=== PATIENT | male | born 1980 | race Caucasian/White ===

== ENCOUNTER 2018-02-11 14:59 | Emergency (ER) | payer OTHER ==
--- NOTE | 2018-02-11 15:33 | ED ---
GI/ HPI - HPI Summary HPI Summary: This pt is a 37 y/o male presenting to [facility] c/o penile swelling and pain for 2.5 days. Pt reports his swelling and pain have gradually worsened over the past days. Pt notes trouble urinating secondary to penile swelling. His pain is aggravated with voiding secondary to swelling. Denies penile discharge, dysuria , hematuria, nausea, vomiting. Pt states he has had a normal appetite and normal bowel movements. He has never had these symptoms in the past. PMHx: appendectomy. - History of Current Complaint Chief Complaint: EDUrogenitalProblems Time Seen by Provider: 02/11/18 15:25 Stated Complaint: 2DAYS PENIS SWOLLEN AND SORE Hx Obtained From: Patient Onset/Duration: Started Days Ago - 2.5, Still Present Timing: Lasting Days - 2.5 Current Severity: Severe Pain Intensity: 8 Additional Locations for Males: Penis Pain Characteristics: Pressure Associated Signs and Symptoms: Positive: Other: - penile swelling. Negative: Nausea, Vomiting, Constipation, Discharge, Diarrhea, Hematuria, Dysuria, Abdominal Pain, New Sexual Partner Aggravating Factor(s): Voiding Alleviating Factor(s): Nothing - Allergy/Home Medications Allergies/Adverse Reactions: Allergies Allergy/AdvReac Type Severity Reaction Status Date / Time No Known Allergies Allergy Verified 02/11/18 15:03 PMH/Surg Hx/FS Hx/Imm Hx Endocrine/Hematology History: Denies: Hx Diabetes Cardiovascular History: Denies: Hx Hypertension - Surgical History Surgery Procedure, Year, and Place: Appendectomy Infectious Disease History: No Infectious Disease History: Denies: Traveled Outside the [place] in Last 30 Days - Family History Known Family History: Negative: Cardiac Disease - Social History Alcohol Use: None Substance Use Type: Reports: None Smoking Status (MU): Never Smoked Tobacco Review of Systems Constitutional: Other - normal appetite Positive: Fever - today ENT: Negative Cardiovascular: Negative Respiratory: Negative Negative: Vomiting, Diarrhea, Nausea, Other - constipation Genitourinary: Other - penile swelling Positive: pain - penile pain. Negative: dysuria, discharge All Other Systems Reviewed And Are Negative: Yes Physical Exam - Summary Physical Exam Summary: Appearance: The patient is well-nourished in no acute distress. Skin: The skin is warm and dry and skin color reflects adequate perfusion. HEENT: The head is normocephalic and atraumatic. The pupils are equal and reactive. The conjunctivae are clear and without drainage. Nares are patent and without drainage. Mouth reveals moist mucous membranes and the throat is without erythema and exudate. The external ears are intact. Neck: the neck is supple with full range of motion and non-tender. There are no carotid bruits. There is no neck vein distension. Respiratory: Chest is non-tender. Lungs are clear to auscultation and breath sounds are symmetrical and equal. Cardiovascular: Heart is regular rate and rhythm. There is no murmur or rub auscultated. There is no peripheral edema and pulses are symmetrical and equal. Abdomen: The abdomen is soft and non-tender. There are normal bowel sounds heard in all four quadrants and there is no organomegaly palpated. : Phimosis. Musculoskeletal: There is no back tenderness noted. Extremities are non-tender with full range of motion. There is good capillary refill. There is no peripheral edema or calf tenderness elicited. Neurological: Patient is alert and oriented to person, place and time. Psychiatric: The patient has an appropriate affect and does not exhibit any anxiety or depression. Triage Information Reviewed: Yes Vital Signs On Initial Exam: Initial Vitals Temp Pulse Resp BP Pulse Ox 100.1 F 103 16 129/87 99 02/11/18 15:00 02/11/18 15:00 02/11/18 15:00 02/11/18 15:00 02/11/18 15:00 Vital Signs Reviewed: Yes Diagnostics - Vital Signs Vital Signs Temp Pulse Resp BP Pulse Ox 02/11/18 15:00 100.1 F 103 16 129/87 99 - Laboratory Lab Statement: Any lab studies that have been ordered have been reviewed, and results considered in the medical decision making process. Re-Evaluation - Re-Evaluation First Eval Re-Evaluation Time: 17:49 Comment: Reviewed lab results with the pt. GIGU Course/Dx - Course Course Of Treatment: Mr. Clarke presented to the emergency department with a concern for penile swelling and pain over the past 2 or 2-1/2 days. He was noted to have swollen foreskin over what seems likely to be a swollen glans. Because of the phimosis it is difficult to actually visualize the glans. Fingerstick glucose was okay at 103 and a urinalysis was negative. I discussed it with Dr. Yarbrough who was willing to follow him up and recommended Mycolog cream in the interim. I also gave him some pain medication as he was unable to sleep well last night. - Diagnoses Provider Diagnoses: Phimosis, Balanitis - Physician Notifications Discussed Care Of Patient With: Kong Cali Time Discussed With Above Provider: 16:32 Instructed by Provider To: Other - I discussed pt care with Dr. Cali, urologist. Discharge - Sign-Out/Discharge Documenting (check all that apply): Patient Departure - Discharge - Discharge Plan Condition: Stable Disposition: HOME Prescriptions: Nystatin/Triamcinolone CR(NF) [Mycolog CREAM(NF)] 1 applic TOPICAL BID #60 gm traMADol TAB* [Ultram*] 50 mg PO Q6HR PRN #20 tab MDD 4 PRN Reason: Pain Patient Education Materials: Phimosis (ED), Balanitis (ED) Referrals: [facility] [Outside] Kong Cali MD [Medical Doctor] - Additional Instructions: Please follow up with Dr. Cali, urologist. RETURN TO THE ED FOR ANY WORSENING SYMPTOMS. - Billing Disposition and Condition Condition: STABLE Disposition: Home
[2018-02-11] MEDS ORDERED: HYDROcodone/ACETAMIN 5-325 MG* 1 TAB PO ONE (16:48)
[2018-02-11 17:09] LABS: Urine Appearance Clear; Urine Blood Negative (Negative); Urine Color Yellow; Urine Ketones Negative (Negative); Urine Protein Negative (Negative); Urine Specific Gravity 1.018 (1.010-1.030); Urine Urobilinogen Negative (Negative)
[2018-02-11 18:36] VITALS: BP 121/77
== END 2018-02-11 18:34 | disposition home or self-care (01) ==
LOC: ED 14:59
DX: N47.1 Phimosis (principal); N48.1 Balanitis
CPT/HCPCS: 81003; 99282

== ENCOUNTER 2018-02-11 21:12 | Emergency (ER) | payer OTHER ==
[2018-02-11 21:20] VITALS: BP 140/81
== END 2018-02-11 21:33 | disposition left against medical advice (07) ==
LOC: ED 21:12
DX: R39.9 Unspecified symptoms and signs involving the genitourinary system (principal); Z53.21 Procedure and treatment not carried out due to patient leaving prior to being seen by health care provider

== ENCOUNTER 2018-02-12 15:57 | Emergency (ER) | payer OTHER ==
[2018-02-12] MEDS ORDERED: Morphine VIAL* 4 MG/ML VIAL (1 ml vial) IV ONE (17:16)
[2018-02-12] MEDS ORDERED: Ketorolac INJ* 30 MG/ML 1 ML VIAL IV PUSH ONE (17:16)
[2018-02-12] MEDS ORDERED: Piperacillin/Tazobac ADVAN(*) 3.375 GM in NS 0.9% 100 ML* 100 ML IVPB ONE (17:17)
--- NOTE | 2018-02-12 17:18 | ED ---
Progress - Progress Note Progress Note: I supervised the care of the physician lpn medical assistant and performed the history and physical exam on the pt. Hx: Pt with penis swelling in the perineal area x2 days. He was started on antifungal ointment yesterday. Pt is uncircumcised. Today he presents with increased pain, swelling, and skin breakdown on base of his penis. Physical Exam: Appearance: Very uncomfortable Skin: warm, dry, reflects adequate perfusion Head/face: normal Eyes: EOMI, RAGHAVENDRA ENT: normal Neck: supple, non-tender Respiratory: CTA, breath sounds present Cardiovascular: RRR, pulses symmetrical Abdomen: non-tender, soft : he has a large open area of 2 cm across base of penis with significant amount of induration and draining pus. Bowel: present Musculoskeletal: normal, strength/ROM intact Neuro: normal, sensory motor intact, A&Ox3 Plan: obtain CT, place on antibiotics. - Results/Orders Results/Orders: Pelvis CT, as read by radiologist IMPRESSION: Diffuse soft tissue edema at the penis corresponding with clinical history. No loculated peripherally enhancing fluid collection evident to definitely identify a focal abscess collection. Negative for subcutaneous emphysema or conspicuous foreign body. Dr. Molina has reviewed this radiology report. Course/Dx - Course Course Of Treatment: Patient with open draining area consistent with abscess in the right base of the penis. It appears to only extend locally. A culture was obtained by me and a CT scan was ordered. This shows no proximal extension throughout the fascia. The patient is spontaneously draining purulence. Zosyn , vancomycin was given IV. I discussed the case with surgery here (as we had no urology coverage) who is not comfortable taking this case. Transfer to [facility] where urology coverages available. Spoke with Dr. Shafer from urology there and the patient was accepted by Dr. Benavides from the hospitalist service. The patient was pain controlled, urinating on his own. A Fernández catheter was attempted replaced here but we were unable to localize the meatus given his significant swelling. - Diagnoses Provider Diagnoses: Penile abscess, Penile swelling - Provider Notifications Discussed Care Of Patient With: Axel Acevedo Time Discussed With Above Provider: 19:23 Instructed by Provider To: Other - I discussed pt care with Dr. Acevedo, surgeon, who will take a look at the CT. [19:37] Dr. Acevedo reports pt needs to be transferred. [20:07] I discussed with the [facility] transfer center and with Dr. Jarquin, urologist, who accepted the case. [20:19] I spoke with Dr. Benavides, from [facility], who accepted the pt for transfer. 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 - Critical Care Time Critical Care Time: 30-74 min - 30 minutes - CCT is EXCLUSIVE of separately billable procedures Discharge - Sign-Out/Discharge Documenting (check all that apply): Patient Departure - Transfer to [facility], Receiving Sign-Out Receiving patient FROM: [facility] - Discharge Plan Condition: Fair Disposition: TRANS HIGHER LVL OF CARE FAC Referrals: No Primary Care Phys,NOPCP [Primary Care Provider] - - Billing Disposition and Condition Condition: FAIR Disposition: Trans Higher Lvl of Care Fac
[2018-02-12 17:33] LABS: Hematocrit 37 % (42-52); Hemoglobin 12.2 g/dl (14.0-18.0); Mean Corpuscular HGB Conc 33 g/dl (31-36); Mean Corpuscular Hemoglobin 27 pg (27-31); Mean Corpuscular Volume 83 fL (80-94); Mean Platelet Volume 7.3 um3 (7.4-10.4); Platelet Count 348 10^3/ul (150-450); Red Blood Count 4.49 10^6/ul (4.00-5.40); Red Cell Distribution Width 13 % (10.5-15); White Blood Count 12.8 10^3/ul (3.5-10.8)
[2018-02-12] MEDS ORDERED: Vancomycin(*) 1,000 MG - ED ONCE IVPB ONE ×2 (18:00)
[2018-02-12] MEDS ORDERED: Vancomycin(*) 1,000 MG VIAL IVPB SCH (18:00)
[2018-02-12 18:04] LABS: Urine Appearance Cloudy; Urine Blood 3+ (Negative); Urine Color Yellow; Urine Ketones Negative (Negative); Urine Protein 1+(30 mg/dL) (Negative); Urine Red Blood Cell 3+(>10/hpf) (Absent); Urine Urobilinogen Negative (Negative); Urine White Blood Cell 3+(>20/hpf) (Absent)
[2018-02-12] MEDS ORDERED: Iohexol 300* (CONTRAST) 10 ML SDV IV ONE (18:04)
--- NOTE | 2018-02-12 18:04 | ED ---
GI/ HPI - HPI Summary HPI Summary: Patient returns today with ongoing pain and penis tissue swelling. Yesterday he presented with mild swelling of the tip and difficulty urinating due to swelling. He was given Mycolog cream. He reports he woke this morning and penis seemed to be a little more swollen. He went to wash it again this afternoon to reapply cream when he noticed an area of drainage near the base of the shaft. Pain is 9/10 despite taking ibuprofen and tramadol which was rx'd yesterday as well. Going back to the origination of this issue, patient reports he developed a dime-sized bump over the foreskin of his penis 2 days ago. He thought he simply bumped it as it was sore but denies a pustule, vesicle, ulceration, etc. He reports the swelling progressed from there - see note from yesterday for details. Other than pressure with urination, he denies dysuria, penile drainage, testicular pain. He has developed swelling about the penile shaft that is progressing down to the very tops of the scrotum today. No inguinal pain/LN swelling. He reports a fever yesterday however today denies fever, chills, N/V/D, and he's moving his bowels well w/o issues. Eating and drinking well. Denies perineal fullness, swelling or pain. No h/o STD's. - History of Current Complaint Chief Complaint: EDUrogenitalProblems Time Seen by Provider: 02/12/18 16:18 Stated Complaint: PENIS IS BLEEDING Hx Obtained From: Patient Pain Intensity: 10 - Allergy/Home Medications Allergies/Adverse Reactions: Allergies Allergy/AdvReac Type Severity Reaction Status Date / Time No Known Allergies Allergy Verified 02/11/18 21:21 PMH/Surg Hx/FS Hx/Imm Hx Previously Healthy: Yes Endocrine/Hematology History: Denies: Hx Diabetes, Autoimmune Disease Cardiovascular History: Denies: Hx Hypertension - Surgical History Surgery Procedure, Year, and Place: Appendectomy Infectious Disease History: No Infectious Disease History: Denies: Hx of Known/Suspected MRSA, Hx Shingles, History Other Infectious Disease - HSV, syphillis, Traveled Outside the [place] in Last 30 Days - Family History Known Family History: Negative: Cardiac Disease - Social History Alcohol Use: None Hx Substance Use: No Substance Use Type: Reports: None Hx Tobacco Use: No Smoking Status (MU): Never Smoked Tobacco Review of Systems Constitutional: Negative Cardiovascular: Negative Respiratory: Negative Gastrointestinal: Negative Positive: see HPI Musculoskeletal: Negative Skin: Negative Neurological: Negative Positive: Anxious All Other Systems Reviewed And Are Negative: Yes Physical Exam Triage Information Reviewed: Yes Vital Signs On Initial Exam: Initial Vitals Temp Pulse Resp BP Pulse Ox 97.7 F 90 17 122/67 100 02/12/18 16:07 02/12/18 16:07 02/12/18 16:07 02/12/18 16:07 02/12/18 16:07 Vital Signs Reviewed: Yes Appearance: Positive: Well-Appearing, Well-Nourished, Pain Distress Skin: Positive: Warm, Skin Color Reflects Adequate Perfusion Head/Face: Positive: Normal Head/Face Inspection Eyes: Positive: EOMI ENT: Positive: Hearing grossly normal Respiratory/Lung Sounds: Positive: Breath Sounds Present Cardiovascular: Positive: Normal Abdomen Description: Positive: Nontender, No Organomegaly, Soft. Negative: CVA Tenderness (R), CVA Tenderness (L) Bowel Sounds: Positive: Present Male Genital Exam: Positive: Scrotum Tenderness (R), Scrotum Tenderness (L), Other - tissue circumventing the shaft of penis is edematous to the point that glans has been eveloped within - open sore about 4mm in diameter (although no clean borders) at the base of the Rt shaft along the ventral surface with serosanginous d/c - when pressure is applied a bloody purulent d/c is expressed and wound is found to be mm deep. Very painful. Edema/induration extends into superior scrotal region - remaining areas of the scrotum and testicles are w/o lesions Musculoskeletal: Positive: Normal, Strength/ROM Intact Neurological: Positive: Normal, Sensory/Motor Intact, Alert, Oriented to Person Place, Time, CN Intact II-III Diagnostics - Vital Signs Vital Signs Temp Pulse Resp BP Pulse Ox 02/12/18 17:35 16 02/12/18 16:07 97.7 F 90 17 122/67 100 - Laboratory Lab Results: Lab Results 02/12/18 02/12/18 02/12/18 Range/Units 17:24 17:24 17:24 WBC 12.8 H (3.5-10.8) 10^3/ul RBC 4.49 (4.00-5.40) 10^6/ul Hgb 12.2 L (14.0-18.0) g/dl Hct 37 L (42-52) % MCV 83 (80-94) fL MCH 27 (27-31) pg MCHC 33 (31-36) g/dl RDW 13 (10.5-15) % Plt Count 348 (150-450) 10^3/ul MPV 7.3 L (7.4-10.4) um3 Neut % (Auto) Pending Lymph % (Auto) Pending [place]ell % (Auto) Pending Eos % (Auto) Pending Baso % (Auto) Pending Absolute Neuts (auto) Pending Absolute Lymphs (auto) Pending Absolute Monos (auto) Pending Absolute Eos (auto) Pending Absolute Basos (auto) Pending Absolute Nucleated RBC Pending Nucleated RBC % Pending Sodium 137 (135-145) mmol/L Potassium 4.4 (3.5-5.0) mmol/L Chloride 100 L (101-111) mmol/L Carbon Dioxide 31 (22-32) mmol/L Anion Gap 6 (2-11) mmol/L BUN 11 (6-24) mg/dL Creatinine 0.67 (0.67-1.17) mg/dL Est GFR ( Amer) 163.3 (>60) Est GFR (Non-Af Amer) 135.0 (>60) BUN/Creatinine Ratio 16.4 (8-20) Glucose 95 (70-100) mg/dL Lactic Acid 1.1 (0.5-2.0) mmol/L Calcium 8.9 (8.6-10.3) mg/dL Result Diagrams: 02/12/18 17:24 02/12/18 17:24 Lab Statement: Any lab studies that have been ordered have been reviewed, and results considered in the medical decision making process. GIGU Course/Dx - Course Course Of Treatment: Dr. Molina in to see pt as well - agrees pt needs labs, CT and cx of bhavani collected. Pain medications and anbx ordered. He will most likely require transfer pending CT d/t circumferential swelling and diffculty urinating w/ additional concern for infection spreading into fascia. Pt aware of plan. Signed out to Dr. Mariscal with pt is stable condition. - Diagnoses Provider Diagnoses: Infection of penis Discharge - Sign-Out/Discharge Documenting (check all that apply): Sign-Out Patient Signing out patient TO: Larry Molina - Discharge Plan Condition: Stable - Billing Disposition and Condition Condition: STABLE
[2018-02-12 18:14] LABS: ABS Basophils 0.1 10^3/ul (0-0.2); ABS Eosinophils 0.6 10^3/ul (0-0.6); ABS Lymphocytes 1.6 10^3/ul (1.0-4.8); ABS Monocytes 1.6 10^3/ul (0-0.8); ABS Neutrophils 8.9 10^3/ul (1.5-7.7); ABS Nucleated RBC 0 10^3/ul; Eosinophil % 4.7 % (0-6); Lymphocyte % 12.5 % (25-47); Nucleated Red Blood Cells % 0.1
[2018-02-12] MEDS ORDERED: HYDROmorphone INJ* 2 MG/ML CARPUJECT SYRINGE IV SLOW PU ONE (18:58)
[2018-02-12] MEDS ORDERED: Lidocaine 2% JELLY* 6 ML JELLY TOPICAL ONE (18:59)
--- NOTE | 2018-02-12 19:08 | RAD ---
Indication: Penile abscess. Comparison: No relevant prior exams available on the [facility] PACS for comparison. Technique: Contrast enhanced CT of pelvis with 97 mL Omnipaque 300 IV contrast. No oral contrast administered. Multiplanar reformation. Report: The appendix is not visualized consistent with surgical history of appendectomy. Unremarkable visualized small and large bowel loops. Negative for ascites or free air within the [id number]. Negative for significant hernias. Unremarkable visualized distal ureters and distended urinary bladder. Unremarkable CT appearance of the prostate and symmetric seminal vesicles. Diffuse soft tissue edema at the penis corresponding with clinical history. No loculated peripherally enhancing fluid collection evident to definitively identify a focal abscess collection. Negative for subcutaneous emphysema or conspicuous foreign body. Small bilateral hydroceles. Negative for lymphadenopathy within the [id number]. Negative for osseous lesions. IMPRESSION: #. Diffuse soft tissue edema at the penis corresponding with clinical history. No loculated peripherally enhancing fluid collection evident to definitively identify a focal abscess collection. Negative for subcutaneous emphysema or conspicuous foreign body.
[2018-02-12] MEDS ORDERED: Vancomycin per Pharmacy* NOTE FOLLOW UP PRN (21:46)
[2018-02-12 21:56] VITALS: BP 126/71
== END 2018-02-12 21:56 | disposition short-term general hospital (02) ==
LOC: ED 15:57
DX: N48.21 Abscess of corpus cavernosum and penis (principal); R39.198 Other difficulties with micturition
CPT/HCPCS: 36415; 72193; 80048; 81003; 81015; 83605; 85025; 87040; 87070; 87077; 87086; 87186; 87205; 87640; 87641; 96365; 96375; 99283; J1170; J1885; J2270; J2543; J3370; Q9967

== ENCOUNTER 2018-02-18 10:47 | Emergency (ER) | payer OTHER ==
--- NOTE | 2018-02-18 13:41 | UC ---
Complaint Male HPI - HPI Summary HPI Summary: Mr. Clarke is a pleasant 37 yo gentleman s/p urologic abscess surgery day before yesterday, Son MILLAN, d/t proximal penile abscess. Packed with betadine soaked surgical packing rope. He was told to f/u with Urologist here in [place], but he reports that they don't take his insurance, as such he plans to f/u with Urology at [facility] in [place]. He reports that he was supposed to have home health nursing care set up for dressing changes every other day, but this did not happen. As such, he presents today for dressing change. He is concerned that the packing material has disappeared, but does not recall it having fallen out. No fever / chills. + scrotal swelling, not worse. No new redness, no new discomfort. No rash. No sob / cp. No c/o urinary issues. Taking augmentin. - History of Current Complaint Chief Complaint: UCGU Stated Complaint: DRESSING CHANGE Time Seen by Provider: 02/18/18 12:59 Hx Obtained From: Patient Pain Intensity: 4 - Allergies/Home Medications Allergies/Adverse Reactions: Allergies Allergy/AdvReac Type Severity Reaction Status Date / Time No Known Allergies Allergy Verified 02/11/18 21:21 Home Medications: Home Medications Amoxicillin/Clavulanate TAB* [Augmentin TAB 500 mg*] 02/18/18 [History] Oxycodone TAB(NF) [Oxycodone HCl 10 MG] 02/18/18 [History] PMH/Surg Hx/FS Hx/Imm Hx Previously Healthy: Yes - see hpi GI/ History: Other - see hpi Other GI/ History: see above - Surgical History Surgical History: Yes Surgery Procedure, Year, and Place: Appendectomy. I and D of penile abcess - Family History Known Family History: Negative: Cardiac Disease - Social History Alcohol Use: Weekly Substance Use Type: None Smoking Status (MU): Never Smoked Tobacco Review of Systems Constitutional: Negative Skin: Other - see hpi Eyes: Negative ENT: Negative Respiratory: Negative Cardiovascular: Negative Gastrointestinal: Negative Genitourinary: Other - see hpi Motor: Negative Neurovascular: Negative Musculoskeletal: Negative Neurological: Negative Psychological: Negative Is Patient Immunocompromised?: No All Other Systems Reviewed And Are Negative: Yes Physical Exam Triage Information Reviewed: Yes Appearance: Well-Nourished Vital Signs: Initial Vital Signs Temp 98.1 F 02/18/18 11:06 Pulse 76 02/18/18 11:06 Resp 16 02/18/18 11:06 BP 103/65 02/18/18 11:06 Pulse Ox 100 02/18/18 11:06 Vital Signs Reviewed: Yes Eye Exam: Normal ENT Exam: Normal - grossly normal Neck exam: Normal Neck: Positive: Supple Respiratory Exam: Normal - resp rate regular, no tachypnea, no dyspnea Cardiovascular Exam: Normal - heart rate regular, non-diaphoretic Abdominal Exam: Normal - nontender, soft Male Genital Exam: Positive: Other - surgical wound appox 1cm diam R inner proximal penis, probing to R scrotum. See COA re further details. Musculoskeletal Exam: Normal - gait steady, moves x 4 ext's Neurological Exam: Normal - grossly nonfocal Psychological Exam: Normal - conversing easily and appropriately Skin Exam: Normal - see re specifics No generalized rash. non-diaphoretic. Complaint Male Course/Dx - Course Course Of Treatment: Wound inspected. + deep wound, probes over 2cm (likely deeper, but further probe not attempted d/t unknown post op anatomy). Mild red bloody drainage. No redness nor foul odor. No packing material identified manually. U/s scrotum - no packing material / dressing identified. Spoke with Dr. Shafer's office (Urology) in [place] 14:20. F/u tomorrow 09:30am appointment. 14:47 test u/s - no FB identified. Impression: In the region of the prior wound debridement no evidnece of foreign body is noted. Echogenic tissue is noted in the wound with flow measuring 5.1x1.4x2.0cm. This may represent granulation tissue. Clinical correlation is suggested. radiologist - Dr. Robertson. 14:55 - wound *gently* packed with iodoform surgical gauze and gauze. Reviewed follow up information. Mr. Clarke will call Urological office to confirm tomorrow's appt. Questions as posed answered to the best of my ability. - Differential Dx/Diagnosis Provider Diagnoses: Urological surgical wound Discharge - Sign-Out/Discharge Documenting (check all that apply): Patient Departure - Discharge Plan Condition: Stable Disposition: HOME Patient Education Materials: Wound Healing and Your Diet (ED), Abscess Follow- up (ED) Referrals: [facility] [Outside] Additional Instructions: Follow up with Urology tomorrow, appt at 09:30am. [phone] Josseline Shafer MD. Rhoda Mccullough NP. Follow up with primary care physician, - per routine. If possible in the next month. Seek medical attention for worse or new problems. Dressing today - iodoform surgical dressing - Billing Disposition and Condition Condition: STABLE Disposition: Home
[2018-02-18 14:08] VITALS: BP 138/68
--- NOTE | 2018-02-18 14:44 | RAD ---
Indication: Evaluate for foreign body. Real-time sonography of the peroneal area demonstrates hyperechoic elongated area hard palpable area measuring 5.1 x 1.4 x 2.0 cm. This likely represents scarring or early granulation tissue. Flow is noted and this echogenic area. No evidence of foreign body is identified. The right testis measures 5.1 x 2.1 x 3.5 cm in the left testis measures 5.1 x 2.5 x 3.6 cm. No scrotal masses are noted. IMPRESSION: In the region of the prior wound debridement no evidence of foreign body is noted. Echogenic tissue is noted in the wound with flow measuring 5.1 x 1.4 x 2.0 cm. This may represent granulation tissue. Clinical correlation is suggested.
== END 2018-02-18 15:15 | disposition home or self-care (01) ==
LOC: UCEAST 10:47
DX: Z48.01 Encounter for change or removal of surgical wound dressing (principal)
CPT/HCPCS: 76870; 99211; G0463